=== PATIENT | female | born 1995 | race Asian ===

== ENCOUNTER 2022-01-23 19:26 | Emergency (ER) | payer BC ==
[~2022-01-23] VITALS: Ht 160 cm; Wt 72.7 kg
[2022-01-23 19:29] VITALS: BP 117/75
[2022-01-24] MEDS ORDERED: BENZ-38 PO (04:38)
== END 2022-01-23 21:37 | disposition home or self-care (01) ==
LOC: ER 19:27
DX: J20.9 Acute bronchitis, unspecified (principal)
CPT/HCPCS: 71045; 99283

== ENCOUNTER 2022-01-24 00:39 | Emergency (ER) | payer BC ==
[~2022-01-24] VITALS: Ht 160 cm; Wt 72.7 kg
--- NOTE | 2022-01-24 02:10 | NUR ---
Pt pink, no acute/resp distress. Bed in lowest position, wheels locked, rail 2/2 up. Pt laying supine. Pt able to reposition self prn. Will continue to monitor for acute changes and needs. PIV site c/d/i s complication.
--- NOTE | 2022-01-24 03:00 | NUR ---
Pt pink, no acute/resp distress. Bed in lowest position, wheels locked, rail 2/2 up. Pt laying supine. Pt able to reposition self prn. Will continue to monitor for acute changes and needs.
[2022-01-24] MEDS ORDERED: ibuprofen 200mg tablet PO ONE (03:20)
[2022-01-24 03:54] VITALS: BP 112/78
--- NOTE | 2022-01-24 04:00 | NUR ---
Pt put back on tracker for requested prescription.
[2022-01-24] MEDS ORDERED: BENZ-38 PO (04:38)
--- NOTE | 2022-01-24 04:40 | NUR ---
Pt states she will just leave vs waiting for the doctor to prescibe a cough suppressant. Pt pink, alert, steady gait. Accompanied by friend.
== END 2022-01-24 03:55 | disposition home or self-care (01) ==
LOC: ER 00:40
DX: R07.89 Other chest pain (principal); R05.9 Cough, unspecified; Z79.899 Other long term (current) drug therapy
CPT/HCPCS: 99283